=== PATIENT | female | born 1945 | race Caucasian/White ===

== ENCOUNTER → 2016-11-01 | Outpatient (CLI) | payer OTHER ==
[~2016-11-01] MED LIST: GADOBUTROL 10 ML VIAL IVP ONE
[2016-11-01 08:30] LABS: CREATININE 0.8 mg/dL (0.6-1.0); GLOMERULAR FILTRATION RATE > 60
--- NOTE | 2016-11-01 10:10 | MR ---
MRI of the Brain (Without and With Contrast) 0814 hours Clinical Indications: Left frontal lobe hemorrhage, follow up, R42, vertigo, I62.9, intracranial hemo rrhage, R42, dizziness, M62.81, weakness of both legs. Comparison: MRI brain June 2016. Technique: T1-weighted images were acquired axially and sagittally from the foramen magnum to the ve rtex. Axial fast inversion-recovery, fast T2-weighted, and diffusion-weighted axial images were obta ined without contrast. Postcontrast axial and coronal images with the uneventful intravenous administ ration of 5.5 mL Gadavist contrast. Findings: Left posterior medial frontoparietal parasagittal old cortical hemorrhage with residual he mosiderin measuring 18 x 15 mm appears smaller than previous study, previously measuring 19 x 15 mm i n maximal dimension. No evidence of new foci of acute hemorrhage or hemosiderin in the cerebral hemis pheres, brainstem, or cerebellar hemispheres. No evidence of brainstem or cerebellar infarct. The ventricles, cisterns, and sulci are widened consistent with atrophy. No hydrocephalus, midline s hift, herniation, or epidural/subdural hematomas. No intracranial hemorrhage or masses. Diffusion-carlos manuel ghted images demonstrate no acute infarct. Cerebellar tonsils are in normal position. Pituitary gland is normal in size. Normal signal flow-void in the superior sagittal sinus, basilar artery, and bilat eral internal carotid arteries indicating patency. Several nonspecific bilateral white matter hyperin tense T2/FLAIR signal abnormalities without mass effect or enhancement. Postcontrast images demonstra te no enhancing lesions or abnormal leptomeningeal enhancement. Paranasal sinuses and mastoid air sydni ls are clear. Impression: 1. 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 No new foci o f acute hemorrhage in the posterior fossa. 2. No acute hemorrhage, definite acute infarct, hydrocephalus or mass effect. 3. Mild cerebral atrophy. 4. A few nonspecific hyperintense T2/FLAIR signal abnormalities in the white matter of bilateral cere bral hemispheres. Differential diagnosis includes mild microvascular ischemic gliosis, post-infectiou s/post-inflammatory sequela, atypical demyelinating disease, or migraine-related sequela. 5. No intraaxial enhancing lesions or abnormal leptomeningeal enhancement.
== END ==
LOC: FIMAGING 07:42
PROVIDERS: ATTEND Psychiatry & Neurology Neurology
DX: I62.9 Nontraumatic intracranial hemorrhage, unspecified (principal); M62.81 Muscle weakness (generalized); R42 Dizziness and giddiness
CPT/HCPCS: 70553; A9585

== ENCOUNTER → 2016-11-04 | Outpatient (CLI) | payer OTHER ==
--- NOTE | 2016-11-04 19:18 | DX ---
DEXA Bone Mineral Densitometry Screening Clinical Indications: Evaluate for possible estrogen deficiency osteoporosis (M 85.80). On the quest ionnaire, the patient reports prior diagnosis of osteopenia. Parent with history of hip fracture. The patient has had previous laminectomy at L5. She is on Fosamax for one year. She takes supplemental v itamin D. Comparison: No prior studies available. Technique: Bone Mineral Densitometry (BMD) by Dual Energy X-Ray Absorptiometry (DEXA) was performed utilizing the [employer] scanner. The bilateral hips and left forearm were evaluated in the AP projection. Vertebral fracture assessment was also performed. AP Left Hip: BMD: 0.749 gm/cm2 T-score: -2.1 SD Z-score: -0.4 SD AP Right Hip: BMD: 0.781 gm/cm2 T-score: -1.8 SD Z-score: -0.1 SD AP Left Forearm: BMD: 0.629 gm/cm2 T-score: -2.8 SD Z-score: -1.0 SD Vertebral Fracture Assessment: No significant fracture deformity. The ten year risk for any major osteoporotic fracture is 11.8% and for a hip fracture is 2.8%. Conclusion: Considering the lowest measured site, the patient is osteoporotic with the greatest degre e in the forearm. Any bone loss in this patient is probably related to aging or estrogen deficiency. Preferential bone loss in the forearm does raise the possibility of underlying hyperparathyroidism. Recommendations: To prevent osteoporosis and to promote bone density, consider the followin. Consider checking patient's PTH and serum calcium and phosphorus levels for possible hyperparathyr oidism. 2. Pursue a regular regimen of weightbearing and muscle-strengthening exercises in order to reduce th e risk of falls and fracture (as tolerated by the patient's general medical condition). 3. Ensure that total daily calcium intake is at least 1500 mg (diet more important than supplements). 4. Check serum hydroxy vitamin D3 (normal >30ng/ml). 5. Ensure daily intake of vitamin D at least 800 international units. 6. Consider follow up DEXA scan in two years to assess the rate of bone loss in this patient. 7. Continue Fosamax.
== END ==
LOC: FIMAGING 08:38
PROVIDERS: ATTEND Internal Medicine Rheumatology
DX: Z13.820 Encounter for screening for osteoporosis (principal); M85.80 Other specified disorders of bone density and structure, unspecified site; M81.0 Age-related osteoporosis without current pathological fracture

== ENCOUNTER → 2017-11-26 | Outpatient (CLI) | payer OTHER | LOC: FIMAGING 07:44 | PROVIDERS: ATTEND Family Medicine | DX: Z12.31 Encounter for screening mammogram for malignant neoplasm of breast (principal) ==

== ENCOUNTER → 2018-12-22 | Outpatient (CLI) | payer OTHER | LOC: FIMAGING 08:05 | PROVIDERS: ATTEND Family Medicine | DX: Z12.31 Encounter for screening mammogram for malignant neoplasm of breast (principal); Z80.3 Family history of malignant neoplasm of breast ==

== ENCOUNTER → 2019-01-27 | Outpatient (CLI) | payer OTHER | LOC: BMCIMAGING 13:39 | PROVIDERS: ATTEND Internal Medicine Rheumatology | DX: Z13.820 Encounter for screening for osteoporosis (principal); M81.0 Age-related osteoporosis without current pathological fracture ==